=== PATIENT | male | born 1935 | race Caucasian/White ===

== ENCOUNTER 2017-03-06 09:40 | Day surgery (SDC) | payer MEDICARE, OTHER ==
--- NOTE | ~2017-03-06 | CN ---
Consultation Report [facility] [address] [place]. [address] NAME: JOO MCLEOD : [birth year] STATUS : REG [facility]#: [id number] AGE: 81 ADM/REG DATE : 03/06/17 MR#: [id number] REPORT SERV DATE: 03/06/17 DICTATED BY: NALINI STOCK DATE: 03/06/17 REPORT STATUS : Draft TRANSCRIBED BY: TYRA DATE: 03/06/17 DATE OF CONSULTATION: ADDENDUM ASSESSMENT AND PLAN: At this point, Mr. Mcleod needs a biopsy of his new mediastinal lymphadenopathy to determine whether he has progressive disease or a new primary bronchogenic carcinoma or if these are just reactive nodes. We discussed in detail potential options including thoracic surgical biopsy or EBUS bronchoscopy. After careful discussion of the risks, benefits, and alternatives to each of these procedures, we agreed to proceed forward with EBUS bronchoscopy. The patient is aware that the procedure is associated with potential life-threatening risks, including lung collapse, respiratory failure, and even . RECOMMENDATIONS: A summary of my recommendations are as follows: Proceed with EBUS bronchoscopy. Thank you for allowing me to participate in Mr. Mcleod's care. CRISTOPHER/TYRA Nalini Stock M.D. / [id number] CC: Matt Still
--- NOTE | ~2017-03-06 | EGD ---
EGD REPORT [facility] [address] [address] NAME: JOO MCLEOD : 37 STATUS : REG [facility]#: [id number] AGE: 81 ADM/REG DATE : 03/06/17 MR#: [id number] REPORT SERV DATE: 03/06/17 DICTATED BY: [place] STOCK DATE: 03/06/17 REPORT STATUS : Draft [facility]ANS[facility]ED [facility]: [facility] DATE: 03/06/17 Pulmonology Patient Name: Joo Mcleod Procedure Date: 03/06/2017 12:56 PM Date of : 1935 Attending MD: [place] STOCK MD Procedure Date No Time: 03/06/2017 Procedure: EBUS Indications: Mediastinal adenopathy, history of lung cancer Providers: [place] STOCK MD Referring MD: JANINE LOPES MD, Alexandro Vivas Medicines: Lidocaine 2% 20 mL Complications: No immediate complications Procedure: Pre-Anesthesia Assessment: - A History and Physical has been performed. Patient meds and allergies have been reviewed. The risks and benefits of the procedure and the sedation options and risks were discussed with the patient. All questions were answered and informed consent was obtained. Patient identification and proposed procedure were verified prior to the procedure by the physician in the pre-procedure area in the procedure room. Mental Status Examination: normal. Respiratory Examination: poor air movement. CV Examination: normal and RRR, no murmurs, no S3 or S4. ASA Grade Assessment: IV - A patient with severe systemic disease that is a constant threat to life. After reviewing the risks and benefits, the patient was deemed in satisfactory condition to undergo the procedure. The anesthesia plan was to use general anesthesia. Immediately prior to administration of medications, the patient was re-assessed for adequacy to receive sedatives. The heart rate, respiratory rate, oxygen saturations, blood pressure, adequacy of pulmonary ventilation, and response to care were monitored throughout the procedure. The physical status of the patient was re-assessed after the procedure. After obtaining informed consent, the Bronchoscope was introduced through the mouth, via the endotracheal tube (the patient was intubated for the procedure) and advanced to the tracheobronchial tree. After obtaining informed consent, The procedure was accomplished without difficulty. The patient tolerated the procedure well. Findings: The endotracheal tube is in good position. The visualized portion of the trachea is of normal caliber. The clarke is sharp. The tracheobronchial EGD REPORT [address] [address] NAME: JOO MCLEOD : 37 STATUS : REG [facility] PAT#: [id number] AGE: 81 ADM/REG DATE : 03/06/17 MR#: [id number] REPORT SERV DATE: 03/06/17 DICTATED BY: [place] STOCK DATE: 03/06/17 REPORT STATUS : Draft TRANSCRIBED BY: [employer] DATE: 03/06/17 tree was examined to at least the first subsegmental level. Bronchial mucosa and anatomy are normal; there are no endobronchial lesions, and no secretions. EBUS TBNA of lymph node level 4R x 8 passes for cytology EBUS TBNA of lymph node level 7 x 5 passes for cytology EBUS TBNA of lymph node level 11L x 4 passes for cytology Impression: Rapid On-Site Evaluation (JOE): Preliminary cytology is POSITIVE for malignancy (final results are pending). Recommendation: - Chest X-ray. - Follow up with referring physician. Attending Participation: I personally performed the entire procedure. ARIEL STOCK MD 03/06/2017 2:05 PM This report has been signed electronically. Number of Addenda: 0 Note Initiated On: 03/06/2017 12:56 PM [address] [place] [address]
--- NOTE | ~2017-03-06 | CN ---
Consultation Report [facility] [address] [place]. [address] NAME: JOO MCLEOD : 37 STATUS : REG [facility]#: [id number] AGE: 81 ADM/REG DATE : 03/06/17 MR#: [id number] REPORT SERV DATE: 03/06/17 DICTATED BY: NALINI STOCK DATE: 03/06/17 REPORT STATUS : Draft TRANSCRIBED BY: TYRA DATE: 03/06/[address] TANK MCCOY, DR. JANINE LOPES, AND LEANDRO CARPIO, DATA TYPIST-C: DATE OF CONSULTATION: Thank you for requesting my opinion regarding evaluation and management of Mr. Joo Mcleod's mediastinal lymphadenopathy. Mr. Mcleod is an extremely pleasant 81-year-old gentleman with a significant past medical history of non-small cell lung cancer, heavy tobacco abuse, and hearing loss with cochlear implant, who presents to [facility] in mediastinal lymphadenopathy. 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 He underwent chemo radiation therapy prescribed by Dr. Choudhary with carboplatin, Alimta, and Avastin. He then started radiation therapy and Avastin was held and treated from 03/23/2016 to 05/18/2016, with 63 cGy in 35 fractions in the left lower lobe and involving the mediastinum and the supraclavicular region. The patient underwent a surveillance CT scan of the chest on 02/09/2017, that demonstrated new 4R and 10L adenopathy and a persistent posterior right hilar mass. The patient states that he has chronic shortness of breath, mild in nature, well localized to the chest, nonradiating, stable with no associated symptoms of cough, hemoptysis, dysphagia, nausea, vomiting diarrhea, or constipation. REVIEW OF SYSTEMS: A detailed 14-point review of systems was completed. Pertinent positives and negatives are listed above. PAST MEDICAL HISTORY: 1. Non-small cell lung cancer. 2. Tobacco abuse. 3. Inguinal hernia repair. 4. Hypertension. 5. COPD. 6. CAD. 7. CTS or carpal tunnel syndrome. 8. Hyperlipidemia. 9. GERD. 10.Hearing loss with cochlear implantation. 11.Iron-deficiency anemia. PAST SURGICAL HISTORY: As above. ALLERGIES: NO KNOWN DRUG ALLERGIES. HOME MEDICATIONS: Reviewed and located in the paper chart. Consultation Report [facility] [address] [place]. [address] NAME: JOO MCLEOD : 37 STATUS : [place] [facility] [place]#: [id number] AGE: 81 ADM/REG DATE : 03/06/17 MR#: [id number] REPORT SERV DATE: 03/06/17 DICTATED BY: NALINI STOCK DATE: 03/06/17 REPORT STATUS : Draft TRANSCRIBED BY: TYRA DATE: 03/06/17 SOCIAL HISTORY: The patient has a 50-pack year smoking history and he stopped after his diagnosis. 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 He is . He denies any significant history of alcohol or illicit drug abuse. PHYSICAL EXAMINATION: VITAL SIGNS: Reviewed and located in the paper chart. GENERAL: No acute distress. Able to communicate in full paragraphs at a time. HEENT: Normocephalic and atraumatic. Pupils are equal, round, and reactive to accommodation. Posterior oropharynx is clear. NECK: No JVD. No LAD. Trachea midline. CARDIOVASCULAR: Regular rate and rhythm. S1 and S2 present. LUNGS: Coarse bilateral breath sounds. End-expiratory wheezes. ABDOMEN: Nontender. Nondistended. Soft. Positive bowel sounds. EXTREMITIES: No clubbing, cyanosis, or edema. NEUROLOGIC: The patient uses a cane to steady his gait and he has a mild limp. The patient is able to move all four extremities with no focal neurologic deficits. PSYCHIATRIC: The patient is alert and oriented x3. Appropriate mood and affect. Appropriate insight and judgment. No suicidal thoughts, intents, or plans were voiced. IMAGING: CT scan of the chest performed on 02/09/2017, was personally reviewed by me and I agree with the following interpretation: New 4R and 10 L adenopathy and a persistent posterior right hilar mass. ASSESSMENT AND PLAN: Mr. 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 DICTATION ENDS HERE CRISTOPHER/TYRA Nalini Stock M.D. / [id number] CC: Matt Still
[~2017-03-06 09:40] MED LIST: ASAB PO; CILOSTAZOL50 MG PO; CYANO1000T PO; DILT-XR120 MG PO; LOP25 PO; MULTIPLE VIT PO; NITROSTAT0.4 MG SL; PLAVIX PO; PRILO PO; PRIN10 PO; PROVHFA INH; SPIRIVA INH; ZANTAC150 MG PO; ZOCOR40 PO
[2017-03-06 10:00] LABS: BASOPHILS 0.5 %; BASOPHILS ABSOLUTE 0.03 10/3/uL (0.0-0.16); EOSINOPHILS 1.9 %; EOSINOPHILS ABSOLUTE 0.12 10/3/uL (0.0-0.53); IMMATURE GRANULOCYTES 0.2 %; IMMATURE GRANULOCYTES ABSOLUTE 0.01 10/3/uL (0.0-0.11); LYMPHOCYTES 19.1 %; LYMPHOCYTES ABSOLUTE 1.24 10/3/uL (0.67-4.30); MEAN CORPUS HGB CONC 33.5 g/dL (32.0-36.0); MEAN CORPUSCULAR HEMOGLOB 29.1 pg (26.0-34.0); MEAN PLATELET VOLUME 8.3 fL (9.2-13.0); MONOCYTES 12.3 %; NEUTROPHILS ABSOLUTE 4.28 10/3/uL (2.02-8.40); WHITE BLOOD CELLS 6.5 10/3/uL (4.5-10.5)
[2017-03-06 10:01] LABS: HEMATOCRIT 33.7 % (40.0-51.0); HEMOGLOBIN 11.3 g/dL (13.6-17.8); MANUAL DIFF NO %; MEAN CORPUSCULAR VOLUME 86.9 fL (80-100); PLATELET COUNT 227 10/3/uL (150-400); RBC DISTRIBUTION WIDTH 15.1 % (12.0-16.0); RED CELL COUNT 3.88 10/6/uL (4.7-6.1)
[2017-03-06 10:10] LABS: PARTIAL THROMBO TIME 28.6 SEC (22.5-37.2); PROTIME (NOT ORD) 13.2 SEC (12.0-14.5)
[2017-03-06 10:19] LABS: CALCIUM, SERUM 9.2 MG/DL (8.5-10.4); CHLORIDE, SERUM 106 MMOL/L (96-112); CO2 (CARBON DIOXIDE) 25 MMOL/L (24-34); CREATININE 1.26 MG/DL (0.70-1.30); GFR AFRICAN AMERICAN 62 ML/MIN (>=60); GFR NON AFRICAN AMERICAN 54 ML/MIN (>=60); POTASSIUM, SERUM 4.8 MMOL/L (3.5-5.3); SODIUM, SERUM 137 MMOL/L (135-148)
[2017-03-06 10:20] LABS: BUN (BLOOD UREA NITROGEN) 21 MG/DL (6-23); GLUCOSE, SERUM 98 MG/DL (60-99)
== END 2017-03-06 23:59 | disposition home health service (06) ==
LOC: DMU 09:40
PROVIDERS: Anesthesiology; Internal Medicine
PROC: 07B74ZX Excision of Thorax Lymphatic, Percutaneous Endoscopic Approach, Diagnostic (ICD-10-PCS; principal; 2017-03-06 11:00)
DX: C96.9 Malignant neoplasm of lymphoid, hematopoietic and related tissue, unspecified (principal); C78.00 Secondary malignant neoplasm of unspecified lung; I12.9 Hypertensive chronic kidney disease with stage 1 through stage 4 chronic kidney disease, or unspecified chronic kidney disease; N18.9 Chronic kidney disease, unspecified; I25.10 Atherosclerotic heart disease of native coronary artery without angina pectoris; I25.2 Old myocardial infarction; K21.9 Gastro-esophageal reflux disease without esophagitis; N40.0 Benign prostatic hyperplasia without lower urinary tract symptoms; E78.00 Pure hypercholesterolemia, unspecified; H91.90 Unspecified hearing loss, unspecified ear; J44.9 Chronic obstructive pulmonary disease, unspecified; Z95.5 Presence of coronary angioplasty implant and graft; Z85.118 Personal history of other malignant neoplasm of bronchus and lung; Z92.21 Personal history of antineoplastic chemotherapy; Z87.891 Personal history of nicotine dependence; Z92.3 Personal history of irradiation; Z96.1 Presence of intraocular lens; Z98.41 Cataract extraction status, right eye; Z98.42 Cataract extraction status, left eye; Z79.82 Long term (current) use of aspirin; Z79.02 Long term (current) use of antithrombotics/antiplatelets; Z79.899 Other long term (current) drug therapy; Z98.890 Other specified postprocedural states
CPT/HCPCS: 71010; 80048; 85025; 85610; 85730; 88172; 88173; 88305; 88341; 88342; 93005; A9270-GY; C1725; J2250; J2405; J2710; J3010